=== PATIENT | female | born 1955 | race Caucasian/White ===

== ENCOUNTER → 2023-10-10 14:13 | Outpatient (REF) | payer OTHER, SELFPAY | LOC: RAD 14:13 | PROVIDERS: ATTENDING PHYSICIAN Physician Assistant Medical | DX: M85.80 Other specified disorders of bone density and structure, unspecified site (principal) | CPT/HCPCS: 77080 ==

== ENCOUNTER → 2023-10-24 13:12 | Outpatient (REF) | payer OTHER, SELFPAY | LOC: WDC 13:12 | PROVIDERS: ATTENDING PHYSICIAN Physician Assistant Medical | DX: Z12.31 Encounter for screening mammogram for malignant neoplasm of breast (principal) | CPT/HCPCS: 77063; 77067 ==

== ENCOUNTER → 2024-03-09 12:55 | Outpatient (REF) | payer OTHER, SELFPAY | LOC: HWRCS 12:55 | PROVIDERS: ATTENDING PHYSICIAN Internal Medicine Cardiovascular Disease; FAMILY PHYSICIAN Physician Assistant Medical | DX: R42 Dizziness and giddiness (principal); R07.9 Chest pain, unspecified | CPT/HCPCS: 93306 ==

== ENCOUNTER → 2024-03-13 10:47 | Outpatient (REF) | payer OTHER, SELFPAY | LOC: RCS 10:47 | PROVIDERS: ATTENDING PHYSICIAN Internal Medicine Cardiovascular Disease; FAMILY PHYSICIAN Physician Assistant Medical | DX: R42 Dizziness and giddiness (principal); R07.9 Chest pain, unspecified | CPT/HCPCS: 93017 ==

== ENCOUNTER → 2024-11-06 15:15 | Outpatient (REF) | payer OTHER, SELFPAY | LOC: WDC 15:15 | PROVIDERS: ATTENDING PHYSICIAN Physician Assistant Medical | DX: Z12.31 Encounter for screening mammogram for malignant neoplasm of breast (principal) | CPT/HCPCS: 77063; 77067 ==

== ENCOUNTER → 2025-04-24 13:43 | Outpatient (REF) | payer OTHER, SELFPAY | LOC: WDC 13:43 | PROVIDERS: ATTENDING PHYSICIAN Student in an Organized Health Care Education/Training Program | DX: R92.30 Dense breasts, unspecified (principal) | CPT/HCPCS: 76641 ==

== ENCOUNTER 2025-06-09 14:31 | Emergency (ER) | payer OTHER, SELFPAY ==
[2025-06-09 14:37] VITALS: BP 173/98
--- NOTE | 2025-06-09 15:16 | ED.MUSCINJ ---
HPI-Injury
General
Chief Complaint: Musculo-Skeletal Complaint
Source: patient
Exam Limitations: none
Time Seen by Provider: 06/09/25 14:49
Nursing documentation reviewed up to this point in time: agreed with
History of Present Illness-Injury
Initial Injury comments:
69 yo female presents with significant left shoulder pain starting a few days after moving sectional, disassembling it and laying carpet 2 weeks ago at home. Taking Advil with not much relief. Sleeping with heating pad with little relief. Pain
starting to radiate to neck and anterior left upper chest wall past few days. Limited ROM due to pain.
Past History
Past History
ED Past Medical History: Other (Recent colon polypectomy, spinal stenosis previous ruptured spleen from colonoscopy, spinal stenosis, osteoporosis)
ED Past Surgical History: and Tonsilectomy
Social History
Tobacco: Non-smoker
Alcohol: Occasional
Personal:
Living: with family
Family History
Family History: Diabetes
Review of Systems
Review of Systems
Allergies reviewed?: Yes
All Other Systems: ROS reviewed and negative except as documented in HPI and ROS
EENT: Reports other (no pain with swallowing)
Respiratory: Denies trouble breathing
Cardiac: Denies chest pain
ABD/GI: Denies nausea
Musculoskeletal: Reports other (left shoulder pain)
Phy Exam
Physical Exam
Physical Exam:
GENERAL: No acute distress. A&Ox3.
CONSTITUTIONAL: Afebrile.
EYES: clear, conjunctivae normal
ENMT: moist mucus membranes, Pharynx nl, TMs normal
RESPIRATORY: Regular respirations, nonlabored, lungs clear.
CARDIOVASCULAR: Regular rate and rhythm, no murmurs, no rubs.
MUSCULOSKELETAL: Tender about the anterior shoulder, limited ROM due to pain. Distal N/V intact. No cervical or neck ST tenderness, full ROM of neck. Moves with ease. Well perfused.
SKIN: Warm, dry, pink
PSYCH: Normal mood and affect. Well kept, interactive and appropriate
NEUROLOGIC: Awake, alert and oriented. No focal neurological deficits
Injury Course
Orders/Labs/Results
Orders:
Orders
06/09/25 14:40
EKG [Electrocardiogram (*1)] Urgent
Reason for Study: Other
Other Reason for Exam: shoulder pain
06/09/25 14:41
EKG- Treatment ONCE
06/09/25 14:49
Shoulder, Left, Trauma CR [CR Shoulder, Trauma - Left] Urgent
Comment:
Reason For Exam: pain after moving furniture
06/09/25 15:46
Dexamethasone [Decadron] 10 mg PO NOW STA
MDM/Problems Addressed
Differential Diagnosis Includes:
bursitis, rotator cuff injury
MDM/Problems Addressed:
69 yo female presents with significant left shoulder pain starting a few days after moving sectional, disassembling it and laying carpet 2 weeks ago at home. Taking Advil with not much relief. Sleeping with heating pad with little relief. Pain
starting to radiate to neck and anterior left upper chest wall past few days. Limited ROM due to pain.
EKG: NSR
Xray left shoulder: Initially read by this examiner, no bony abnormality, no calcifications
Will treat for shoulder bursitis. Referred to ortho as needed
Rx for Prednisone taper sent to her pharmacy
*Pulse Oximetry
SaO2: 99
Oxygen Mode of Delivery: Room air
Patient hypoxic: not evaluated
*Critical Care Note
Total Time (30-74mins, 75-104mins- exclusive of procedures): Not Applicable
ED Attending Note
-
Portions of this chart may have been created with voice recognition software.� Occasional wrong word or��sound alike� substitutions may have occurred due to the inherent limitations of voice recognition software.
Discharge Plan
Departure
Patient Disposition: Home (Routine Discharge)
Date of Disposition: 06/09/25
Time of Disposition: 15:42
Patient with high blood pressure during this ER visit?: No
Condition: Good
Discharge Problem:
Acute shoulder bursitis
Instructions: Shoulder Bursitis Exercises, Bursitis - ED (DC)
Prescriptions:
New
prednisone 10 mg Tablet
See Rx Instructions .ROUTE .COMPLEX Qty: 30 0RF
Rx Instructions:
Take By Mouth:
40 mg daily x3 days, 30 mg daily x3 days,
20 mg daily x3 days, 10 mg daily x3 days.
No Action
ferrous sulfate [FeroSul] 325 MG tablet
325 mg PO DAILY Qty: 30 0RF
levofloxacin 500 MG tablet
500 mg PO DAILY Qty: 9 0RF
metronidazole 500 MG tablet
500 mg PO TID Qty: 29 0RF
Referrals:
Que Nam MD [Active, Orthopedics] - As needed
UNKNOWN - PT DOES,NOT KNOW [Unknown Provider]
Activity Restrictions/Additional Instructions:
As we discussed, your shoulder x-ray is normal.
I sent a prescription to your pharmacy for prednisone taper. Started tomorrow you were given a dose of steroid here today
You may take ibuprofen 400 mg with food, every 8 hours as needed for pain
See the orthopedic doctor for evaluation if you are not a lot better in 1 week or not 100% better in 3-4 weeks.
Interventions
Interventions:
*Risk Screen - Suicide Last Done: 06/09/25 14:40
*General Assessment Last Done: 06/09/25 14:40
*Neglect/Abuse Screening Last Done: 06/09/25 14:40
*ED COVID-19 Vaccine History Last Done: 06/09/25 14:40
*ED Influenza Vaccine History Last Done: 06/09/25 14:40
Discharge Date and Time
Print Language: KHMER
[2025-06-09] MEDS: DECADRON 10 MG PO (15:58)
[2025-06-09 16:00] VITALS: BP 132/88
== END 2025-06-09 16:06 | disposition home or self-care (01) ==
LOC: EMR 14:31
PROVIDERS: EMERGENCY PHYSICIAN Emergency Medicine; FAMILY PHYSICIAN Physician Assistant Medical
DX: M25.512 Pain in left shoulder (principal); M75.52 Bursitis of left shoulder; X50.0XXA Overexertion from strenuous movement or load, initial encounter; Z83.3 Family history of diabetes mellitus
CPT/HCPCS: 99283; 73030; 93005